=== PATIENT | male | born 1995 | race Caucasian/White ===

== ENCOUNTER 2018-05-01 12:24 | Emergency (ER) ==
[2018-05-01 12:39] VITALS: BP 99/65; TEMP 98.6; BMI 18.6
--- NOTE | 2018-05-01 13:08 | CT ---
EXAM: CT cervical spine. HISTORY: Neck pain after wrestling. COMPARISON: None. TECHNIQUE: Contiguous axial images at 2 mm intervals were obtained from the base of the skull to the thoracic spine. Sagittal and coronal reformats were reviewed. No contrast was given. FINDINGS: There is normal curvature and alignment. Disc heights and vertebral heights are well maint ained. There are no acute or healing fractures. There are no lytic or blastic lesions. No signific ant degenerative changes are seen. No disc bulges are identified. The soft tissues are normal. The airway is widely patent. Limited views of the lung apices are normal. IMPRESSION: No acute cervical spine abnormality.
--- NOTE | 2018-05-01 13:13 | CT ---
EXAM: CT chest without contrast HISTORY: Rib pain after trauma COMPARISON: None TECHNIQUE: Serial axial images of the chest were obtained from the lung apices to the upper abdomen without contrast. These were viewed in multiple planes. FINDINGS: The thyroid is normal. The visualized vessels are unremarkable without aneurysm or stenos is. The heart is normal in size without pericardial effusion. There are no pathologically enlarged mediastinal or hilar lymph nodes. There is no pneumothorax or effusion. There is mild small airway thickening noted bilaterally. Ther e is no significant ground-glass or consolidation. The airways are patent. There is no displaced rib fracture or abnormality. Limited views of the soft tissues in the upper ab domen are unremarkable. IMPRESSION: 1. No acute cardiopulmonary process or pneumothorax. There is small airway thickening suggestive of bronchiolitis. 2. No displaced rib fracture or acute osseous abnormality.
--- NOTE | 2018-05-01 13:18 | ED.PDOC ---
General ED Provider: Dr. FUNMI ABBOTT-ER Chief Complaint: Chest Wall Injury/Pain Stated Complaint: i hurt my chest and my neck Time Seen by Physician: 12:35 Mode of Arrival: Walk-In Information Source: Patient Exam Limitations: No limitations Primary Care Provider: WENDI ACEVES Nursing and Triage Documentation Reviewed and Agree: Yes Does patient meet sepsis criteria?: No System Inflammatory Response Syndrome: Not Applicable Sepsis Protocol: For patient's 13 years and over: Temp is 96.8 and below OR 101 and greater Pulse >90 BPM Resp >20/minute Acutely Altered Mental Status Are patient's symptoms suggestive of a new infection, such as: -Pneumonia -Skin, Soft Tissue -Endocarditis -UTI -Bone, Joint Infection -Implantable Device -Acute Abdominal Infection -Wound Infection -Meningitis -Blood Stream Catheter Infection -Unknown Trauma/Injury Complaint Exam - Trauma Complaint/Exam Location of Pain or Injury: Reports: Neck, Chest Mechanism of Injury: Reports: Direct blow Onset/Duration: 2-3 days Symptoms Are: Still present Timing of Treatment: Immediate Initial Severity: Mild Current Severity: Mild Character: Reports: Aching Aggravating: Reports: Palpation Associated Signs and Symptoms: Denies: LOC, Confusion, Memory loss, Lethargy, Vomiting, Bleeding, Bruising, Swelling, Extremity disuse, Painful respiration, Hoarseness, Dysphagia, Hemoptysis, Significant blood loss Penetrating Injury Risk Factors: Reports: None Related Surgical History: Reports: None Immobilization Removed Post Exam: No Compartment Syndrome Risk Factors: Present: Pain Skin Findings: Present: Normal findings Review of Systems - Review Of Systems Constitutional: Reports: No symptoms Eyes: Reports: No symptoms Ears, Nose, Mouth, Throat: Reports: No symptoms Respiratory: Reports: No symptoms Cardiac: Reports: No symptoms GI: Reports: No symptoms : Reports: No symptoms Musculoskeletal: Reports: Muscle pain, Neck pain Skin: Reports: No symptoms Neurological: Reports: No symptoms Endocrine: Reports: No symptoms Hematologic/Lymphatic: Reports: No symptoms All Other Systems: Reviewed and Negative Past Medical History - Past Medical History Previously Healthy: No Endocrine: Reports: Unknown Cardiovascular: Reports: Unknown Respiratory: Reports: Other Hematological: Reports: Unknown Gastrointestinal: Reports: Unknown Genitourinary: Reports: Unknown Neuro/Psych: Reports: Unknown Musculoskeletal: Reports: Unknown Cancer: Reports: Unknown - Surgical History General Surgical History: Reports: Unknown - Family History Family History: Reports: Unknown - Social History Smoking Status: Current some day smoker Hx Substance Use: No Alcohol Screening: None - Immunizations Tetanus Shot up to Date: No Physical Exam - Physical Exam Appearance: Well-appearing, No pain distress, Well-nourished Pain Distress: Mild Eyes: KATIE, EOMI, Conjunctiva clear ENT: Ears normal, Nose normal, Oropharynx normal Neck: Supple Respiratory: Airway patent, Breath sounds clear, Breath sounds equal, Respirations nonlabored Cardiovascular: RRR, Pulses normal, No rub, No murmur GI/: Soft, Nontender, No masses, Bowel sounds normal, No Organomegaly Musculoskeletal: Limited ROM Skin: Warm, Dry, Normal color Neurological: Sensation intact, Motor intact, Reflexes intact, Cranial nerves intact, Alert, Oriented Psychiatric: Affect appropriate, Mood appropriate Interpretation - Radiology Interpretation Radiology Interpretation By: Radiologist Radiology Results: Negative Exam Interpreted: CT Scan Critical Care Note - Critical Care Note Total Time (mins): 0 Course - Course Orders, Labs, Meds: Orders Category Date Time Status CT CERVICAL SPINE W/O CONTRAST Stat RADS 05/01/18 12:[address] CHEST W/O CONTRAST Stat RADS 05/01/18 12:40 Completed Vital Signs: Temp Pulse Resp BP Pulse Ox 05/01/18 12:26 98.6 F 69 16 99/65 98 Departure - Departure Time of Disposition: 13:18 Disposition: HOME SELF-CARE Discharge Problem: Chest wall pain Instructions: Chest Wall Pain (ED) Condition: Good Pt referred to PMD for follow-up: No IPMP verified?: No Additional Instructions: norco 5mg q 6hrs prn pain #12--f/u with pcp Allergies/Adverse Reactions: Allergies No Known Allergies Allergy (Verified 05/01/18 12:36) Home Medications: Ambulatory Orders 1 [No Reported Medications] 05/01/18 Disposition Discussed With: Patient, Family
== END 2018-05-01 13:24 | disposition home or self-care (01) ==
LOC: ED 12:24
DX: R07.89 Other chest pain (principal); M54.2 Cervicalgia; W22.8XXA Striking against or struck by other objects, initial encounter; F17.210 Nicotine dependence, cigarettes, uncomplicated
CPT/HCPCS: 99283

== ENCOUNTER 2018-05-18 11:30 | Outpatient (CLI) ==
--- NOTE | 2018-05-18 11:52 | DI ---
EXAM: Three views of the cervical spine. History: Skin paresthesia. Comparison: CT cervical spine 05/01/2018 Findings: No acute fracture or subluxation of the cervical spine. No prevertebral soft tissue swell ing. Predental space is not widened. Disc space heights are preserved. Impression: Unremarkable exam
== END 2018-05-18 11:31 | disposition home or self-care (01) ==
LOC: RAD 11:30
PROVIDERS: ATTEND Physician Assistant
DX: R20.2 Paresthesia of skin (principal)